=== PATIENT | female | born 1995 | race Caucasian/White ===

== ENCOUNTER 2018-08-03 11:03 | Inpatient (IN) | payer OTHER ==
[2018-08-05] MEDS: LACTATED RINGERS 1,000 ML IV SCH ×3 (02:00→10:45)
[2018-08-05] MEDS ORDERED: LIDOCAINE 1% INJ 10MG/ML (20 ML MDV) SQ PRN (02:01)
[2018-08-05] MEDS ORDERED: CARBOPROST TROMETHAMINE 250 MCG/ML 1 ML AMP IM PRN (02:01)
[2018-08-05] MEDS ORDERED: TERBUTALINE 1 MG/ML VIAL SQ PRN (02:01)
[2018-08-05] MEDS ORDERED: OXYTOCIN 10 UNIT/ML 1 ML VIAL IM PRN (02:01)
[2018-08-05] MEDS ORDERED: METHYLERGONOVINE 0.2 MG/ML 1 ML AMP IM PRN (02:01)
[2018-08-05 02:12] LABS: Basophils # (A) 0.1 k/uL (0-0.2); Basophils % (A) 1 %; Eosinophils # (A) 0.1 k/uL (0-0.7); Eosinophils % (A) 2 %; HCT 33.5 % (34.0-46.0); Lymphocytes # (A) 2.7 k/uL (1.0-4.8); Lymphocytes % (A) 28 %; MCH 27.4 pg (25.0-35.0); MCHC 32.9 g/dL (31.0-37.0); MCV 83.4 fL (80.0-100.0); Mean Platelet Volume 7.2; Monocytes # (A) 0.5 k/uL (0-1.0); Monocytes % (A) 5 %; Neutrophils # (A) 6.2 k/uL (1.3-7.7); Neutrophils % (A) 64 %; Platelet Count 245 k/uL (150-450); RBC 4.01 m/uL (3.80-5.40); WBC 9.7 k/uL (4.0-11.0)
[2018-08-05] MEDS ORDERED: BUTORPHANOL 1 MG/ML 1 ML VIAL IV PRN (02:21)
[2018-08-05] MEDS: OXYTOCIN 20 UNITS/1000 ML NS 1,000 ML IV SCH ×2 (04:38→17:18)
--- NOTE | 2018-08-05 07:26 | P.HPOB ---
History of Present Illness H&P Date: 08/05/18 Chief Complaint: SROM 22 year old presents at 40 weeks 2 days with spontaneous rupture of membranes at 430am. Her cervix is 3cm dilated, 80%effaced and -2 station. she is cathleen irregularly. heart tones 135-140 with moderate variability and reactive. Review of Systems All systems: negative Constitutional: Denies chills, Denies fever Eyes: denies blurred vision, denies pain Ears, nose, mouth and throat: Denies headache, Denies sore throat Cardiovascular: Denies chest pain, Denies shortness of breath Respiratory: Denies cough Gastrointestinal: Denies abdominal pain, Denies diarrhea, Denies nausea, Denies vomiting Genitourinary: Denies dysuria, Denies hematuria Musculoskeletal: Denies myalgias Integumentary: Denies pruritus, Denies rash Neurological: Denies numbness, Denies weakness Psychiatric: Denies anxiety, Denies depression Endocrine: Denies fatigue, Denies weight change Past Medical History Past Medical History: No Reported History Additional Past Medical History / Comment(s): OB history: This is her first and she had care with me since 25 weeks. O+, abs neg, Rub Imm , RPR Nr, Hep B neg, HIV NR, normal 1hr GTT. EIF on anatomy US-neg maternity 21. History of Any Multi-Drug Resistant Organisms: None Reported Past Surgical History: Tonsillectomy Past Anesthesia/Blood Transfusion Reactions: No Reported Reaction Past Psychological History: No Psychological Hx Reported Smoking Status: Never smoker Past Alcohol Use History: None Reported Past Drug Use History: None Reported - Past Family History Mother Family Medical History: No Reported History Medications and Allergies Home Medications Medication Instructions Recorded Confirmed Type No Known Home Medications 08/05/18 08/05/18 History Pnv,Calcium 72/Iron/Folic Acid 1 each PO DAILY 08/05/18 08/05/18 History [ Plus Tablet] Allergies Allergy/AdvReac Type Severity Reaction Status Date / Time No Known Allergies Allergy Verified 08/05/18 01:46 Exam Osteopathic Statement: *. No significant issues noted on an osteopathic structural exam other than those noted in the History and Physical/Consult. Vital Signs Temp Pulse Resp BP Pulse Ox 08/05/18 02:04 97.4 F L 73 16 119/80 98 Intake and Output 08/04/18 08/05/18 08/05/18 22:59 06:59 14:59 Other: # Voids 1 Weight 81.647 kg Heart: RRR Lungs: CTAB Abdomen: soft, nontender Extremeties: neg juan's Results Result Diagrams: 08/05/18 02:00 Abnormal Lab Results - Last 24 Hours (Table) 08/05/18 Range/Units 02:00 Hgb 11.0 L (11.4-16.0) gm/dL Hct 33.5 L (34.0-46.0) % Assessment and Plan (1) Spontaneous rupture of membranes Current Visit: Yes Status: Acute Code(s): [id number] - SNOMED Code(s): 123135258 Plan: 1. pitocin augmentation 2. anticipate normal vaginal delivery
[2018-08-05] MEDS ORDERED: ROPIVACAINE 100 MG, fentaNYL (PF) 200 MCG in SODIUM CHLORIDE 0.9% 76 ML EPIDURAL ONE (08:20)
[2018-08-05] MEDS ORDERED: diphenhydrAMINE 50 MG CAP PO PRN (14:48)
[2018-08-05] MEDS ORDERED: diphenhydrAMINE 25 MG CAP PO PRN (14:48)
[2018-08-05] MEDS ORDERED: HYDROCORTISONE 2.5% RECTAL CREAM 30 GM TUBE RECTAL PRN (14:48)
[2018-08-05] MEDS ORDERED: SIMETHICONE 80 MG CHEWABLE PO PRN (14:48)
[2018-08-05] MEDS ORDERED: ACETAMINOPHEN TAB 325 MG TAB PO PRN (14:48)
[2018-08-05] MEDS ORDERED: BENZOCAINE/MENTHOL SPRAY 1 GM/SPRAY AEROSOL TOPICAL PRN (14:48)
[2018-08-05] MEDS ORDERED: WITCH HAZEL 1 EACH MED..PAD TOPICAL PRN (14:48)
[2018-08-05] MEDS ORDERED: ZOLPIDEM 5 MG TAB PO PRN (14:48)
[2018-08-05] MEDS ORDERED: diphenhydrAMINE 50 MG/ML 1 ML VIAL IVP PRN ×2 (14:48)
[2018-08-05 16:35] VITALS: RESP 16
--- NOTE | 2018-08-05 17:42 | P.PROBDLV ---
Vaginal Delivery Note - . Vaginal Delivery Note: 22-year-old presented at 40 weeks and 2 days with spontaneous rupture membranes at 00 30. When she presented she was 3 cm dilated, 80% effaced, -2 station. She is cathleen irregularly. heart tones 140-145 with moderate variability and reactive. Pitocin augmentation was started. When she was uncomfortable she did get an epidural. Her cervix was completely dilated at 1311. She pushed, delivered a viable male over intact perineum under epidural anesthesia at 1412. Head delivered OA, anterior shoulder delivered gentle downward guidance followed by posterior shoulder and rest of body. Nose and mouth suctioned, cord clamped and cut, placed on mother's abdomen. Apgars 9, 10, weight 7 lbs. 7 oz. Placenta delivered spontaneously, intact with three-vessel cord at 1415. Vagina, cervix, and perineum were inspected. First-degree right lateral laceration was repaired with 3-0 Vicryl. Estimated blood loss 200 mL. Mother and baby in stable condition.
[2018-08-05] MEDS: IBUPROFEN 600 MG TAB PO PRN (19:43)
[2018-08-05] MEDS: SENNOSIDES-DOCUSATE SODIUM 1 EACH TAB PO SCH (19:44)
[2018-08-06] MEDS: SENNOSIDES-DOCUSATE SODIUM 1 EACH TAB PO SCH (08:16)
[2018-08-06] MEDS: IBUPROFEN 600 MG TAB PO PRN ×2 (08:31→14:59)
--- NOTE | 2018-08-06 11:22 | P.DS ---
Providers Date of admission: 08/05/18 01:30 Expected date of discharge: 08/06/18 Attending physician: Imani Clemente Primary care physician: Stated None - Discharge Diagnosis(es) (1) Spontaneous rupture of membranes Current Visit: Yes Status: Resolved (2) Normal vaginal delivery Current Visit: Yes Status: Acute Hospital Course: Patient presented with spontaneous rupture membranes. She underwent a normal vaginal delivery. She'll be discharged home day #1 in stable condition to follow-up with me in 6 weeks. Plan - Discharge Summary New Discharge Prescriptions: New Ibuprofen [Motrin] 600 mg PO Q6HR PRN #30 tab PRN Reason: Mild Pain Or Fever >= 100.5 No Action Pnv,Calcium 72/Iron/Folic Acid [ Plus Tablet] 1 each PO DAILY Discharge Medication List Pnv,Calcium 72/Iron/Folic Acid [ Plus Tablet] 1 each PO DAILY 08/05/18 [ History] Ibuprofen [Motrin] 600 mg PO Q6HR PRN #30 tab 08/06/18 [Rx] Follow up Appointment(s)/Referral(s): Imani Clemente DO [Doctor of Osteopathic Medicine] - 6 Weeks Discharge Disposition: HOME SELF-CARE
[2018-08-06] MEDS ORDERED: DIPH,PERTUS(ACELL)TETVAC-LF 0.5 ML VIAL IM ONE (14:50)
[2018-08-06 17:01] VITALS: BP 114/76; PULSE 59; TEMP 98.5
== END 2018-08-06 16:33 | disposition home or self-care (01) | DRG 807 ==
LOC: 4FBP 08-05 01:30
PROVIDERS: ADMIT Obstetrics & Gynecology; ATTEND Obstetrics & Gynecology
PROC: 0HQ9XZZ Repair Perineum Skin, External Approach (ICD-10-PCS; principal; 2018-08-05)
PROC: 00HU33Z Insertion of Infusion Device into Spinal Canal, Percutaneous Approach (ICD-10-PCS; principal; 2018-08-05)
PROC: 3E0R3NZ Introduction of Analgesics, Hypnotics, Sedatives into Spinal Canal, Percutaneous Approach (ICD-10-PCS; principal; 2018-08-05)
PROC: 10E0XZZ Delivery of Products of Conception, External Approach (ICD-10-PCS; principal; 2018-08-05)
DX: O70.0 First degree perineal laceration during delivery (principal); Z37.0 Single live birth; Z3A.40 40 weeks gestation of pregnancy
CPT/HCPCS: 85025; 86850; 86900; 86901; 90715

== ENCOUNTER 2019-01-06 19:53 | Emergency (ER) | payer OTHER ==
--- NOTE | 2019-01-06 20:45 | XR ---
PROCEDURE: XR knee 4V RT - 3V DATE AND TIME: 01/06/2019 8:28 PM CLINICAL INDICATION: PHH; Pain TECHNIQUE: Department protocol COMPARISON: None FINDINGS: There is no fracture or malalignment. The soft tissues are unremarkable. IMPRESSION: NO ACUTE PROCESS.
[2019-01-06] MEDS ORDERED: ACETAMINOPHEN TAB 325 MG TAB PO STA (20:47)
--- NOTE | 2019-01-06 21:16 | ED ---
General Adult HPI - General Chief complaint: Extremity Injury, Lower Stated complaint: Knee pain Time Seen by Provider: 01/06/19 20:07 Source: patient, RN notes reviewed, old records reviewed Mode of arrival: wheelchair Limitations: no limitations - History of Present Illness Initial comments: 23-year-old female patient with no pertinent past medical history presents ED with acute right knee injury. Patient force that she was walking at work when her right knee make contact with a protruding manual hernandes at her work. Patient reports that she hit her right knee and fell to the ground. Patient denies any trauma to head or neck. Patient primary complaint is anterior right knee pain. Patient has been ambulatory with pain. Patient denies any other complaints. Systemic: Pt denies fatigue, myalgia, fever/chills, rash. Pt denies weakness, night sweats, weight loss. Neuro: Pt denies headache, visual disturbances, syncope or pre-syncope. HEENT: Pt denies ocular discharge or irritation, otalgia, rhinorrhea, pharyngitis or notable lymphadenopathy. Cardiopulmonary: Pt denies chest pain, SOB, heart palpitations, dyspnea on exertion. Abdominal/GI: Pt denies abdominal pain, n/v/d. : Pt denies dysuria, burning w/ urination, frequency/urgency. Denies new onset urinary or bowel incontinence. MSK: Pt denies myalgia, loss of strength or function in extremities. Neuro: Pt denies new onset weakness, paresthesias. - Related Data Home Medications Medication Instructions Recorded Confirmed No Known Home Medications 01/06/19 01/06/19 Allergies Allergy/AdvReac Type Severity Reaction Status Date / Time No Known Allergies Allergy Verified 08/05/18 01:46 Review of Systems ROS Statement: Those systems with pertinent positive or pertinent negative responses have been documented in the HPI. ROS Other: All systems not noted in ROS Statement are negative. Past Medical History Past Medical History: No Reported History Additional Past Medical History / Comment(s): OB history: This is her first and she had care with me since 25 weeks. O+, abs neg, Rub Imm, RPR Nr, Hep B neg, HIV NR, normal 1hr GTT. EIF on anatomy US-neg maternity 21. History of Any Multi-Drug Resistant Organisms: None Reported Past Surgical History: Tonsillectomy Past Anesthesia/Blood Transfusion Reactions: No Reported Reaction Past Psychological History: No Psychological Hx Reported Smoking Status: Never smoker Past Alcohol Use History: None Reported Past Drug Use History: None Reported - Past Family History Mother Family Medical History: No Reported History General Exam - General Exam Comments Initial Comments: Constitutional: NAD, AOX3, Pt has pleasant affect. HEENT: NC/AT, trachea midline, neck supple, no lymphadenopathy. Posterior pharynx non erythematous, without exudates. External ears appear normal, without discharge. Mucous membranes moist. Eyes PERRLA, EOM intact. There is no scleral icterus. No pallor noted. Cardiopulmonary: RRR, no murmurs, rubs or gallops, no JVD noted. Lungs CTAB in anterior and posterior cordova. No peripheral edema. Abdominal exam: Abdomen soft and non-distended. Abdomen non-tender to palpation in all 4 quadrants. Bowel sounds active in LLQ. No hepatosplenomegaly. No e cchymosis Neuro: CN II-XII grossly intact. No nuchal rigidity. MSK: Small ecchymoses noted on the anterior right patella. Full active range of motion, without pain. Full passive range of motion without pain. Patient able to bear weight with cane. Distal pulses intact and equal. No tenderness to to/fibula, femur, ankle, foot. Mild tenderness to medial aspect of right knee. No posterior calf tenderness bilaterally, homans sign negative bilaterally. Posterior tibialis and radial pulse +2 bilaterally. Sensation intact in upper and lower extremities. Full active ROM in upper and lower extremities, 5/5 stregnth. Limitations: no limitations Course Vital Signs 01/06/19 01/06/19 19:59 21:47 Temperature 97.8 F 97.5 F L Pulse Rate 61 62 Respiratory 20 16 Rate Blood Pressure 117/75 120/77 O2 Sat by Pulse 99 99 Oximetry Medical Decision Making - Medical Decision Making 23-year-old female patient with no pertinent past medical history presents ED with acute right knee injury. Patient force that she was walking at work when her right knee make contact with a protruding manual hernandes at her work. Patient reports that she hit her right knee and fell to the ground. Patient denies any trauma to head or neck. Patient primary complaint is anterior right knee pain. Patient has been ambulatory with pain. Patient denies any other complaints. Patient vital signs stable, afebrile. Physical exam displayed: Small ecchymoses noted on the anterior right patella. Full active range of motion, without pain. Full passive range of motion without pain. Patient able to bear weight with cane. Distal pulses intact and equal. No tenderness to to/fibula, femur, ankle, foot. Mild tenderness to medial aspect of right knee. Plain film of right Display any acute process. Patient placed in knee immobilizer. Patient to follow up with orthopedic consult. Patient is crutches, not bear weight. Patient will return here if condition worsens in any way. Case discussed with Dr. Hernandez. Disposition Clinical Impression: Right knee sprain Disposition: HOME SELF-CARE Condition: Stable Instructions (If sedation given, give patient instructions): Knee Sprain (ED) Additional Instructions: Patient to adhere to previously discussed treatment plan and will take medication(s) as directed. Patient to follow up with PCP in 1-2 days. Patient to return to ED if symptoms do not improve. Please follow-up with orthopedic consult 1-2 days. Please return to ER if condition worsens in any way. Please do not bear weight. Please continue to use knee immobilizer and crutches. Is patient prescribed a controlled substance at d/c from ED?: No Referrals: Fabio Granados MD [Primary Care Provider] - 1-2 days Kendra Cowan PAC [PHYSICIAN WAFFLE MACHINE OPERATOR] - 1-2 days
[2019-01-06 21:49] VITALS: BP 120/77; PULSE 62; RESP 16; TEMP 97.5
== END 2019-01-06 21:49 | disposition home or self-care (01) ==
LOC: EC 19:53
DX: S83.91XA Sprain of unspecified site of right knee, initial encounter (principal); W18.09XA Striking against other object with subsequent fall, initial encounter; Y93.01 Activity, walking, marching and hiking; Y92.69 Other specified industrial and construction area as the place of occurrence of the external cause; Y99.0 Civilian activity done for income or pay
CPT/HCPCS: 99284

== ENCOUNTER 2019-03-20 14:23 | Emergency (ER) | payer BC, OTHER ==
[2019-03-20] MEDS ORDERED: LORazepam 2 MG/ML INJ IV STA (15:02)
[2019-03-20] MEDS ORDERED: SODIUM CHLORIDE 0.9% 1,000 ML IV STA (15:02)
[2019-03-20] MEDS ORDERED: ONDANSETRON 4 MG/2 ML VIAL IVP STA (15:02)
[2019-03-20 15:25] LABS: Basophils # (A) 0.1 k/uL (0-0.2); Basophils % (A) 0 %; Eosinophils # (A) 0.3 k/uL (0-0.7); Eosinophils % (A) 2 %; HCT 46.7 % (34.0-46.0); HGB 15.3 gm/dL (11.4-16.0); Lymphocytes # (A) 0.7 k/uL (1.0-4.8); Lymphocytes % (A) 4 %; MCH 26.2 pg (25.0-35.0); MCHC 32.8 g/dL (31.0-37.0); MCV 79.9 fL (80.0-100.0); Mean Platelet Volume 7.4; Monocytes # (A) 0.5 k/uL (0-1.0); Monocytes % (A) 3 %; Neutrophils # (A) 15.5 k/uL (1.3-7.7); Neutrophils % (A) 91 %; Platelet Count 276 k/uL (150-450); RBC 5.85 m/uL (3.80-5.40); RDW 15.5 % (11.5-15.5)
[2019-03-20 15:35] LABS: ALT 18 U/L (9-52); AST 21 U/L (14-36); African American GFR (CKD) >90 (>60 ml/min/1.73 sqM); Alkaline Phosphatase 84 U/L (38-126); Amylase 84 U/L (30-110); Anion Gap 15 mmol/L; Blood Urea Nitrogen 15 mg/dL (7-17); Calcium 10.3 mg/dL (8.4-10.2); Carbon Dioxide 16 mmol/L (22-30); Chloride 109 mmol/L (98-107); Glucose 158 mg/dL (74-99); Lipase 145 U/L (23-300); Potassium 3.8 mmol/L (3.5-5.1); Sodium 140 mmol/L (137-145); Total Bilirubin 1.1 mg/dL (0.2-1.3); Total Protein 8.1 g/dL (6.3-8.2)
--- NOTE | 2019-03-20 15:57 | ED ---
Nausea/Vomiting/Diarrhea HPI - General Chief complaint: Nausea/Vomiting/Diarrhea Stated complaint: vomiting Time Seen by Provider: 03/20/19 14:41 Source: patient, family Mode of arrival: wheelchair Limitations: no limitations - History of Present Illness Initial comments: 23-year-old female patient presents to the emergency department today for evaluation of vomiting, diarrhea, and anxiety. Patient states on 10 AM she started vomiting and having episodes of diarrhea. States she's had numerous episodes of both. States that she occasionally has abdominal cramping just prior to a diarrhea episode. She denies hematochezia, melena, or hematemesis. States she feels chilled but has had no fevers. Denies any recent travel or antibiotic use. States that multiple family members in her household have been sick with similar symptoms over the last several days. Patient denies any chance of . Denies any hematuria, dysuria, urinary frequency, urinary urgency. She denies any back pain. Patient denies any recent rash, shortness breath, chest pain, numbness, tingling, dizziness, weakness, headache, visual changes, or any other complaints. - Related Data Previous Rx's Medication Instructions Recorded Ondansetron [Zofran ODT] 4 mg PO Q8HR PRN #10 tab 03/20/19 Allergies Allergy/AdvReac Type Severity Reaction Status Date / Time No Known Allergies Allergy Verified 03/20/19 14:43 Review of Systems ROS Statement: Those systems with pertinent positive or pertinent negative responses have been documented in the HPI. ROS Other: All systems not noted in ROS Statement are negative. Past Medical History Past Medical History: No Reported History Additional Past Medical History / Comment(s): OB history: This is her first and she had care with ma since 25 weeks. O+, abs neg, Rub Imm, RPR Nr, Hep B neg, HIV NR, normal 1hr GTT. EIF on anatomy US-neg maternity 21. History of Any Multi-Drug Resistant Organisms: None Reported Past Surgical History: Tonsillectomy Past Anesthesia/Blood Transfusion Reactions: No Reported Reaction Past Psychological History: No Psychological Hx Reported Smoking Status: Never smoker Past Alcohol Use History: None Reported Past Drug Use History: None Reported - Past Family History Mother Family Medical History: No Reported History General Exam Limitations: no limitations General appearance: alert, in no apparent distress, anxious, other (This a well- developed, well-nourished adult female patient in no acute distress. Vital signs upon presentation are temperature 97.6F, pulse 82, respirations 18, blood pressure 118/68, pulse ox 98% on room air.) Eye exam: Present: normal appearance, PERRL, EOMI. Absent: scleral icterus, conjunctival injection, periorbital swelling ENT exam: Present: normal exam, normal oropharynx, mucous membranes moist Respiratory exam: Present: normal lung sounds bilaterally. Absent: respiratory distress, wheezes, rales, rhonchi, stridor Cardiovascular Exam: Present: regular rate, normal rhythm, normal heart sounds. Absent: systolic murmur, diastolic murmur, rubs, gallop, clicks GI/Abdominal exam: Present: soft, normal bowel sounds. Absent: distended, tenderness, guarding, rebound, rigid Neurological exam: Present: alert, oriented X3, CN II-XII intact Psychiatric exam: Present: anxious Skin exam: Present: warm, dry, intact, normal color. Absent: rash Course Vital Signs 03/20/19 03/20/19 03/20/19 14:32 14:54 16:31 Temperature 97.6 F 97.9 F Pulse Rate 82 69 62 Respiratory 18 16 16 Rate Blood Pressure 118/68 119/73 101/76 O2 Sat by Pulse 98 100 96 Oximetry 03/20/19 18:35 Temperature 98.0 F Pulse Rate 76 Respiratory 18 Rate Blood Pressure 112/64 O2 Sat by Pulse 100 Oximetry Medical Decision Making - Medical Decision Making 23-year-old female patient presented to the emergency department today for evaluation of vomiting and diarrhea that started around 10 AM. Patient's family members recently ill with similar symptoms. Physical examination is unremarkable. Abdomen soft and nontender. Labs reviewed and did reveal white blood cell, 17, likely reactive from vomiting. Remainder labs are unremarkable. Patient was given IV fluids and IV medication here in the emergency department. Upon reevaluation patient does report complete improvement of symptoms. States she feels much better. She is able to tolerate oral intake. Upon reevaluation, abdomen remained soft and nontender. We did discuss Tried This Is a Cause for Her Symptoms. She'll Be Given a Prescription for Zofran. She Is Instructed to Start with Clear Liquid Diet and Advance As Tolerated. She Is Instructed to Follow-Up with Her Primary Care Physician for Recheck in 1-2 Days. Return Parameters Were Discussed in Detail. She Verbalizes Understanding and Agrees with This Plan. - Lab Data Result diagrams: 03/20/19 15:15 03/20/19 15:15 Lab Results 03/20/19 03/20/19 03/20/19 Range/Units 15:15 15:15 16:30 WBC 17.0 H (3.8-10.6) k/uL RBC 5.85 H (3.80-5.40) m/uL Hgb 15.3 (11.4-16.0) gm/dL Hct 46.7 H (34.0-46.0) % MCV 79.9 L (80.0-100.0) fL MCH 26.2 (25.0-35.0) pg MCHC 32.8 (31.0-37.0) g/dL RDW 15.5 (11.5-15.5) % Plt Count 276 (150-450) k/uL Neutrophils % 91 % Lymphocytes % 4 % Monocytes % 3 % Eosinophils % 2 % Basophils % 0 % Neutrophils # 15.5 H (1.3-7.7) k/uL Lymphocytes # 0.7 L (1.0-4.8) k/uL Monocytes # 0.5 (0-1.0) k/uL Eosinophils # 0.3 (0-0.7) k/uL Basophils # 0.1 (0-0.2) k/uL Sodium 140 (137-145) mmol/L Potassium 3.8 (3.5-5.1) mmol/L Chloride 109 H (98-107) mmol/L Carbon Dioxide 16 L (22-30) mmol/L Anion Gap 15 mmol/L BUN 15 (7-17) mg/dL Creatinine 0.70 (0.52-1.04) mg/dL Est GFR (CKD-EPI)AfAm >90 (>60 ml/min/1.73 sqM) Est GFR (CKD-EPI)NonAf >90 (>60 ml/min/1.73 sqM) Glucose 158 H (74-99) mg/dL Calcium 10.3 H (8.4-10.2) mg/dL Total Bilirubin 1.1 (0.2-1.3) mg/dL AST 21 (14-36) U/L ALT 18 (9-52) U/L Alkaline Phosphatase 84 (38-126) U/L Total Protein 8.1 (6.3-8.2) g/dL Albumin 5.0 (3.5-5.0) g/dL Amylase 84 (30-110) U/L Lipase 145 (23-300) U/L Urine Color Urine Appearance (Clear) Urine pH (5.0-8.0) Ur Specific [place] (1.001-1.035) Urine Protein (Negative) Urine Glucose (UA) (Negative) Urine Ketones (Negative) Urine Blood (Negative) Urine Nitrite (Negative) Urine Bilirubin (Negative) Urine Urobilinogen (<2.0) mg/dL Ur Leukocyte Esterase (Negative) Urine RBC (0-5) /hpf Urine WBC (0-5) /hpf Ur Squamous Epith Cells (0-4) /hpf Urine Mucus (None) /hpf Urine HCG, Qual Not Detected (Not Detectd) 03/20/19 Range/Units 16:30 WBC (3.8-10.6) k/uL RBC (3.80-5.40) m/uL Hgb (11.4-16.0) gm/dL Hct (34.0-46.0) % MCV (80.0-100.0) fL MCH (25.0-35.0) pg MCHC (31.0-37.0) g/dL RDW (11.5-15.5) % Plt Count (150-450) k/uL Neutrophils % % Lymphocytes % % Monocytes % % Eosinophils % % Basophils % % Neutrophils # (1.3-7.7) k/uL Lymphocytes # (1.0-4.8) k/uL Monocytes # (0-1.0) k/uL Eosinophils # (0-0.7) k/uL Basophils # (0-0.2) k/uL Sodium (137-145) mmol/L Potassium (3.5-5.1) mmol/L Chloride (98-107) mmol/L Carbon Dioxide (22-30) mmol/L Anion Gap mmol/L BUN (7-17) mg/dL Creatinine (0.52-1.04) mg/dL Est GFR (CKD-EPI)AfAm (>60 ml/min/1.73 sqM) Est GFR (CKD-EPI)NonAf (>60 ml/min/1.73 sqM) Glucose (74-99) mg/dL Calcium (8.4-10.2) mg/dL Total Bilirubin (0.2-1.3) mg/dL AST (14-36) U/L ALT (9-52) U/L Alkaline Phosphatase (38-126) U/L Total Protein (6.3-8.2) g/dL Albumin (3.5-5.0) g/dL Amylase (30-110) U/L Lipase (23-300) U/L Urine Color Yellow Urine Appearance Clear (Clear) Urine pH 5.5 (5.0-8.0) Ur Specific [place] 1.023 (1.001-1.035) Urine Protein Trace H (Negative) Urine Glucose (UA) Negative (Negative) Urine Ketones 4+ H (Negative) Urine Blood Negative (Negative) Urine Nitrite Negative (Negative) Urine Bilirubin Negative (Negative) Urine Urobilinogen <2.0 (<2.0) mg/dL Ur Leukocyte Esterase Moderate H (Negative) Urine RBC 1 (0-5) /hpf Urine WBC 4 (0-5) /hpf Ur Squamous Epith Cells 3 (0-4) /hpf Urine Mucus Few H (None) /hpf Urine HCG, Qual (Not Detectd) Disposition Clinical Impression: Gastroenteritis Disposition: HOME SELF-CARE Condition: Good Instructions (If sedation given, give patient instructions): Gastroenteritis (ED) Additional Instructions: Start with clear liquid diet and advance as tolerated. Take medications as directed. Follow-up with the primary care physician for recheck in 1-2 days. Return to the emergency department immediately for any new, worsening, or concerning symptoms. Prescriptions: Ondansetron [Zofran ODT] 4 mg PO Q8HR PRN #10 tab PRN Reason: Nausea Is patient prescribed a controlled substance at d/c from ED?: No Referrals: Fabio Granados MD [Primary Care Provider] - 1-2 days Time of Disposition: 17:46
[2019-03-20] MEDS ORDERED: KETOROLAC 30 MG/ML 1 ML VIAL IVP STA (16:38)
[2019-03-20 16:42] LABS: Appearance,Urine Clear (Clear); Bilirubin,Urine Negative (Negative); Blood,Urine Negative (Negative); Color,Urine Yellow; Glucose,Urine (UA) Negative (Negative); Ketones,Urine 4+ (Negative); Leukocyte Esterase,Urine Moderate (Negative); Mucus,Urine Few /hpf; Nitrite,Urine Negative (Negative); PH, Urine 5.5 (5.0-8.0); Protein,Urine Trace (Negative); RBC,Urine 1 /hpf (0-5); Specific Gravity,Urine 1.023 (1.001-1.035); Squamous Epithelial Cell,Urine 3 /hpf (0-4); Urobilinogen,Urine <2.0 mg/dL (<2.0); WBC,Urine 4 /hpf (0-5)
[2019-03-20] MEDS ORDERED: SODIUM CHLORIDE 0.9% 1,000 ML IV ONE (17:26)
[2019-03-20] MEDS ORDERED: ONDANSETRON 4 MG ODT STARTER PACK 2 TAB BTL PO STA (17:45)
[2019-03-20 18:37] VITALS: BP 112/64; PULSE 76; RESP 18; TEMP 98
== END 2019-03-20 18:37 | disposition home or self-care (01) ==
LOC: EC 14:23
DX: K52.9 Noninfective gastroenteritis and colitis, unspecified (principal); F41.9 Anxiety disorder, unspecified
CPT/HCPCS: 36415; 80053; 82150; 83690; 85025; 81001; 81025; 99284; 96374; 96375 ×2; 96361 ×3; J2060; J2405; J1885; S0119

== ENCOUNTER → 2020-06-19 | Outpatient (CLI) | payer BC, OTHER ==
--- NOTE | 2020-06-19 12:55 | US ---
EXAMINATION TYPE: US thyroid st tissue head/neck DATE OF EXAM: 06/19/2020 COMPARISON: US CLINICAL HISTORY: R59.9 Enlarged lymph nodes. Patient feels two palpable, one is on the lower right jaw, and the second one is just below the jaw o n the left neck. The right jaw was scanned directly over palpable as pointed out by patient. There is a hypoechoic are a measuring 0.5 x 0.3 x 0.8 cm with internal vascularity. The left neck area palpable was scanned directly over palpable as pointed out by patient. There is a 2.3 x 0.6 cm hypoechoic area with internal vascularity. COMPARISON: There has been lymphadenopathy present previously in 2017, these appear smaller than the comparison. IMPRESSION: 1. Probable lymphadenopathy within the neck the levels of the palpable abnormalities. Monitoring can be performed. If these continue to change or additional suspected adenopathy develops, CT neck soft t issues be performed as needed.
== END | disposition home or self-care (01) ==
LOC: RADUSWWP 12:18
PROVIDERS: ATTEND Internal Medicine
DX: R59.9 Enlarged lymph nodes, unspecified (principal)
CPT/HCPCS: 76536

== ENCOUNTER → 2020-07-10 | Outpatient (CLI) | payer BC, OTHER ==
--- NOTE | 2020-07-10 11:01 | CT ---
EXAMINATION TYPE: CT soft tissue neck w con DATE OF EXAM: 07/10/2020 9:35 AM COMPARISON: Ultrasound 06/19/2020 HISTORY: Cervical lymphadenopathy CT DLP: 266.20 mGycm Automated exposure control for dose reduction was used. CONTRAST: CT scan of the neck is performed following with IV Contrast, patient injected with 100 ml mL of Isovu e 300. Axial images are obtained, coronal and sagittal reformatted images are reviewed. FINDINGS: Just caudal to the submandibular gland on the left there is a lymph node with short axis me asurement of approximately 12 to 13 mm corresponding to palpable abnormality and the overlying marker . There are some questionable asymmetric soft tissue associated with the palatine tonsil on the left which could be technical. Airway: No gross abnormality seen.0 there is mucosal thickening in the right maxillary sinus. Parotid/submandibular glands: No gross abnormality seen. Carotid/Vascular Structures: Patent Osseous Structures: Unremarkable Other: No additional abnormality IMPRESSION: Enlarged submandibular lymph node corresponds to the palpable abnormality and abnormalit y seen on ultrasound. Question some asymmetric increased soft tissue associated with the palatine ton zachary on the left.
== END | disposition home or self-care (01) ==
LOC: RADCTMAIN 08:44
PROVIDERS: ATTEND Otolaryngology
DX: R59.0 Localized enlarged lymph nodes (principal)
CPT/HCPCS: 70491; Q9967

== ENCOUNTER 2024-07-11 14:21 | Emergency (ER) | payer BC, OTHER ==
--- NOTE | 2024-07-11 15:16 | ED ---
Female Urogenital HPI - General Source: patient, RN notes reviewed Mode of arrival: ambulatory Limitations: no limitations - History of Present Illness MD Complaint: vaginal bleeding, pelvic pain <Jodi Griffin - Last Filed: 07/11/24 15:14> <Rosa Elena Sadler - Last Filed: 07/11/24 20:28> - General Chief complaint: Vaginal Bleeding Stated complaint: vag bleeding,abd pain Time Seen by Provider: 07/11/24 15:10 - History of Present Illness Initial comments: Quick Note: This is a 28-year-old female who presents to the emergency department for abdominal pain and vaginal bleeding. Patient had an IUD placed in 2020. States that she tends to get regular periods each month that are fairly light and lasting about 3 days. She states that she has been dealing with bleeding for the last 2 to 3 weeks, but getting much worse over the last 3 days. Reports increasing pelvic cramping as well. She has never had a problem like this with the IUD before. (Jodi Griffin) This is a 28-year-old female with a significant past medical history presents emergency department chief complaint of lower abdominal pelvic cramping and vaginal bleeding and heavy over the past 3 days. Per ED of the past 3 days and states that she has been experiencing intermittent bleeding and spotting over the past week causing concern. IUD placed in 2020. Denies urinary complaints, nausea, vomiting, fevers or chills. (Rosa Elena Sadler) - Related Data Previous Rx's Medication Instructions Recorded Ondansetron [Zofran ODT] 4 mg PO Q8HR PRN #10 tab 03/20/19 Allergies Allergy/AdvReac Type Severity Reaction Status Date / Time No Known Allergies Allergy Verified 07/11/24 14:28 Review of Systems ROS Other: All systems not noted in ROS Statement are negative. <Jodi Griffin - Last Filed: 07/11/24 15:14> ROS Other: All systems not noted in ROS Statement are negative. <Rosa Elena Sadler - Last Filed: 07/11/24 20:28> ROS Statement: Those systems with pertinent positive or pertinent negative responses have been documented in the HPI. Past Medical History Past Medical History: No Reported History Additional Past Medical History / Comment(s): OB history: This is her first and she had care with me since 25 weeks. O+, abs neg, Rub Imm, RPR Nr, Hep B neg, HIV NR, normal 1hr GTT. EIF on anatomy US-neg maternity 21. History of Any Multi-Drug Resistant Organisms: None Reported Past Surgical History: Tonsillectomy Past Anesthesia/Blood Transfusion Reactions: No Reported Reaction Past Psychological History: No Psychological Hx Reported Smoking Status: Never smoker Past Alcohol Use History: None Reported Past Drug Use History: None Reported - Past Family History Mother Family Medical History: No Reported History <Jodi Griffin - Last Filed: 07/11/24 15:14> General Exam Limitations: no limitations <Jodi Griffin - Last Filed: 07/11/24 15:14> General appearance: alert, in no apparent distress ENT exam: Present: normal exam, mucous membranes moist Neck exam: Present: normal inspection. Absent: tenderness, meningismus, lymphadenopathy Respiratory exam: Present: normal lung sounds bilaterally. Absent: respiratory distress, wheezes, rales, rhonchi, stridor Cardiovascular Exam: Present: regular rate, normal rhythm, normal heart sounds. Absent: systolic murmur, diastolic murmur, rubs, gallop, clicks GI/Abdominal exam: Present: soft, tenderness (suprapubic), normal bowel sounds. Absent: distended, guarding, rebound, rigid Extremities exam: Present: normal inspection, full ROM, normal capillary refill. Absent: tenderness, pedal edema, joint swelling, calf tenderness Back exam: Present: normal inspection Skin exam: Present: warm, dry, intact, normal color. Absent: rash <Rosa Elena Sadler - Last Filed: 07/11/24 20:28> - General Exam Comments Initial Comments: Visual Physical Exam Vital signs reviewed General: Well-appearing, nontoxic, no acute distress. Head: Normocephalic, atraumatic Eyes: PERRLA, EOMI ENT: Airway patent Chest: Nonlabored breathing Skin: No visual rash, normal skin tone Neuro: Alert and oriented 3 Musculoskeletal: No gross abnormalities (Jodi Griffin) Course Vital Signs 07/11/24 07/11/24 07/11/24 14:26 16:45 18:00 Temperature 98.6 F 98.4 F Pulse Rate 73 60 55 L Respiratory 18 17 17 Rate Blood Pressure 110/73 107/73 111/64 O2 Sat by Pulse 100 99 100 Oximetry Medical Decision Making <Jodi Griffin - Last Filed: 07/11/24 15:14> - Lab Data Result diagrams: 07/11/24 16:29 07/11/24 16:29 <Rosa Elena Sadler - Last Filed: 07/11/24 20:28> - Medical Decision Making I performed the QuickNote portion of this chart. Signed Jodi Griffin PA-C. (Jodi Griffin) Was pt. sent in by a medical professional or institution (QUINTIN Tellez, HEAD CONTROL CLERK, urgent care, hospital, or half-way...) When possible be specific @ -No Did you speak to anyone other than the patient for history (EMS, parent, family, police, friend...)? What history was obtained from this source @ -No Did you review nursing and triage notes (agree or disagree)? Why? @ -I reviewed and agree with nursing and triage notes Were old charts reviewed (outside hosp., previous admission, EMS record, old EKG, old radiological studies, urgent care reports/EKG's, half-way records)? Report findings @ -No old charts were reviewed Differential Diagnosis (chest pain, altered mental status, abdominal pain women, abdominal pain men, vaginal bleeding, weakness, fever, dyspnea, syncope, headache, dizziness, GI bleed, back pain, seizure, CVA, palpatations, mental health, musculoskeletal)? @ -Differential Vaginal Bleeding: Spontaneous , threatened , molar , ectopic , bloody show, incompetent cervix, abruptioplacenta, placenta previa, uterine rupture, dysfunctional uterine bleeding, hemorrhage, uterine fibroids, this is not meant to be an all-inclusive list. EKG interpreted by me (3pts min.). @ -none X-rays interpreted by me (1pt min.). @ -None done CT interpreted by me (1pt min.). @ -None done U/S interpreted by me (1pt. min.). @ -Transvaginal ultrasound is unremarkable What testing was considered but not performed or refused? (CT, X-rays, U/S, labs)? Why? @ -None What meds were considered but not given or refused? Why? @ -None Did you discuss the management of the patient with other professionals (professionals i.e. , PA, HEAD CONTROL CLERK, lab, RT, psych nurse, social studies department chair, electric motor rebuilder, teacher, rating officer, field case manager)? Give summary @ -No Was smoking cessation discussed for >3mins.? @ -No Was critical care preformed (if so, how long)? @ -No Were there social determinants of health that impacted care today? How? (Homelessness, low income, unemployed, alcoholism, drug addiction, transportation, low edu. Level, literacy, decrease access to med. care, nursing home, rehab)? @ -No Was there de-escalation of care discussed even if they declined (Discuss DNR or withdrawal of care, Hospice)? DNR status @ -No What co-morbidities impacted this encounter? (DM, HTN, Smoking, COPD, CAD, Cancer, CVA, ARF, Chemo, Hep., AIDS, mental health diagnosis, sleep apnea, morbid obesity)? @ -None Was patient admitted / discharged? Hospital course, mention meds given and route, prescriptions, significant lab abnormalities, going to OR and other pertinent info. @ -Discharged. 28-year-old female for screening. Patient was evaluated in the emergency department waiting room as a quick note where a transvaginal ultrasound was ordered addition to laboratory studies and urinalysis. On my evaluation the patient she is resting comfortably no signs acute distress. She is quite tearful on questioning states that she is scared that there may be something more acute going on that she has been experiencing worsening vaginal bleeding over the past few weeks. Patient noted to have mild suprapubic tenderness to palpation. Vitals are stable. She was offered Tylenol and or Motrin however she has declined at this time. Workup has been negative including CBC, CMP, urinalysis, hCG, ultrasound. Patient was provided with information came from visit and instructed to follow-up with informatics developer for further evaluation. She is stable for discharge at this time. Discussed with Dr. Morgan Undiagnosed new problem with uncertain prognosis? @ -No Drug Therapy requiring intensive monitoring for toxicity (Heparin, Nitro, Insulin, Cardizem)? @ -No Were any procedures done? @ -No Diagnosis/symptom? @ -Menorrhagia Acute, or Chronic, or Acute on Chronic? @ -acute Uncomplicated (without systemic symptoms) or Complicated (systemic symptoms)? @ -uncomplicated Side effects of treatment? @ -No Exacerbation, Progression, or Severe Exacerbation? @ -No Poses a threat to life or bodily function? How? (Chest pain, [place], [place], pneumonia, PE, COPD, DKA, ARF, appy, cholecystitis, CVA, Diverticulitis, Homicidal, Suicidal, threat to staff... and all critical care pts) @ -No (Rosa Elena Sadler) - Lab Data Lab Results 07/11/24 07/11/24 07/11/24 Range/Units 16:29 16:29 16:29 WBC 7.5 (3.8-10.6) k/uL RBC 4.84 (3.80-5.40) m/uL Hgb 14.1 (11.4-16.0) gm/dL Hct 43.1 (34.0-46.0) % MCV 88.9 (80.0-100.0) fL MCH 29.0 (25.0-35.0) pg MCHC 32.7 (31.0-37.0) g/dL RDW 12.5 (11.5-15.5) % Plt Count 219 (150-450) k/uL MPV 7.1 Neutrophils % 55 % Lymphocytes % 34 % Monocytes % 6 % Eosinophils % 3 % Basophils % 1 % Neutrophils # 4.1 (1.3-7.7) k/uL Lymphocytes # 2.5 (1.0-4.8) k/uL Monocytes # 0.4 (0-1.0) k/uL Eosinophils # 0.2 (0-0.7) k/uL Basophils # 0.1 (0-0.2) k/uL Sodium (137-145) mmol/L Potassium (3.5-5.1) mmol/L Chloride (98-107) mmol/L Carbon Dioxide (22-30) mmol/L Anion Gap mmol/L BUN (7-17) mg/dL Creatinine (0.52-1.04) mg/dL Est GFR (CKD-EPI)AfAm (>60 ml/min/1.73 sqM) Est GFR (CKD-EPI)NonAf (>60 ml/min/1.73 sqM) Glucose (74-99) mg/dL Plasma Lactic Acid Jeremiah (0.7-2.0) mmol/L Calcium (8.4-10.2) mg/dL Total Bilirubin (0.2-1.3) mg/dL AST (14-36) U/L ALT (4-34) U/L Alkaline Phosphatase (38-126) U/L Total Protein (6.3-8.2) g/dL Albumin (3.5-5.0) g/dL Urine Color Colorless Urine Appearance Clear (Clear) Urine pH 6.5 (5.0-8.0) Ur Specific [place] 1.004 (1.001-1.035) Urine Protein Negative (Negative) Urine Glucose (UA) Negative (Negative) Urine Ketones Negative (Negative) Urine Blood Moderate H (Negative) Urine Nitrite Negative (Negative) Urine Bilirubin Negative (Negative) Urine Urobilinogen <2.0 (<2.0) mg/dL Ur Leukocyte Esterase Trace H (Negative) Urine WBC <1 (0-5) /hpf Ur Squamous Epith Cells 1 (0-4) /hpf Urine Bacteria Rare H (None) /hpf Urine HCG, Qual Not Detected (Not Detectd) 07/11/24 07/11/24 Range/Units 16:29 16:29 WBC (3.8-10.6) k/uL RBC (3.80-5.40) m/uL Hgb (11.4-16.0) gm/dL Hct (34.0-46.0) % MCV (80.0-100.0) fL MCH (25.0-35.0) pg MCHC (31.0-37.0) g/dL RDW (11.5-15.5) % Plt Count (150-450) k/uL MPV Neutrophils % % Lymphocytes % % Monocytes % % Eosinophils % % Basophils % % Neutrophils # (1.3-7.7) k/uL Lymphocytes # (1.0-4.8) k/uL Monocytes # (0-1.0) k/uL Eosinophils # (0-0.7) k/uL Basophils # (0-0.2) k/uL Sodium 139 (137-145) mmol/L Potassium 4.4 (3.5-5.1) mmol/L Chloride 105 (98-107) mmol/L Carbon Dioxide 27 (22-30) mmol/L Anion Gap 7 mmol/L BUN 12 (7-17) mg/dL Creatinine 0.76 (0.52-1.04) mg/dL Est GFR (CKD-EPI)AfAm >90 (>60 ml/min/1.73 sqM) Est GFR (CKD-EPI)NonAf >90 (>60 ml/min/1.73 sqM) Glucose 84 (74-99) mg/dL Plasma Lactic Acid Jeremiah 0.8 (0.7-2.0) mmol/L Calcium 9.9 (8.4-10.2) mg/dL Total Bilirubin 0.7 (0.2-1.3) mg/dL AST 25 (14-36) U/L ALT 13 (4-34) U/L Alkaline Phosphatase 42 (38-126) U/L Total Protein 7.8 (6.3-8.2) g/dL Albumin 4.7 (3.5-5.0) g/dL Urine Color Urine Appearance (Clear) Urine pH (5.0-8.0) Ur Specific [place] (1.001-1.035) Urine Protein (Negative) Urine Glucose (UA) (Negative) Urine Ketones (Negative) Urine Blood (Negative) Urine Nitrite (Negative) Urine Bilirubin (Negative) Urine Urobilinogen (<2.0) mg/dL Ur Leukocyte Esterase (Negative) Urine WBC (0-5) /hpf Ur Squamous Epith Cells (0-4) /hpf Urine Bacteria (None) /hpf Urine HCG, Qual (Not Detectd) Disposition <Jodi Griffin - Last Filed: 07/11/24 15:14> Is patient prescribed a controlled substance at d/c from ED?: No Time of Disposition: 18:09 <Rosa Elena Sadler - Last Filed: 07/11/24 20:28> Clinical Impression: Menorrhagia Disposition: HOME SELF-CARE Condition: Good Instructions (If sedation given, give patient instructions): Menorrhagia (ED) Additional Instructions: Please return to the Emergency Department if symptoms worsen or any other concerns. Referrals: Nonstaff,Physician [Primary Care Provider] - 1-2 days
--- NOTE | 2024-07-11 16:22 | US ---
EXAMINATION TYPE: US transvaginal DATE OF EXAM: 07/11/2024 COMPARISON: NONE CLINICAL INDICATION: Female, 28 years old with history of Pelvic pain and bleeding; 3 days of bleedin g, pelvic pain, IUD for 3 years, TECHNIQUE: TV. Transvaginal sonographic images FINDINGS: Date of LMP: 2 weeks ago EXAM MEASUREMENTS: Uterus: 7.9 x 4.0 x 4.7 cm Endometrial Stripe: 0.7 cm. Right Ovary: 2.9 x 2.4 x 2.2 cm Left Ovary: 2.4 x 1.7 x 2.0 cm 1. Uterus: Anteverted wnl 2. Endometrium: wnl IUD within the endometrial canal. 3. Right Ovary: wnl 4. Left Ovary: wnl 5. Bilateral Adnexa: wnl 6. Posterior cul-de-sac: wnl IMPRESSION: Unremarkable pelvic ultrasound [facility] Eulalio Hinds, Workstation: [facility], 07/11/2024 4:20 PM
[2024-07-11 16:48] VITALS: RESP 17; TEMP 98.4
[2024-07-11 16:55] LABS: Basophils # (A) 0.1 k/uL (0-0.2); Basophils % (A) 1 %; Eosinophils # (A) 0.2 k/uL (0-0.7); Eosinophils % (A) 3 %; HCT 43.1 % (34.0-46.0); HGB 14.1 gm/dL (11.4-16.0); Lymphocytes # (A) 2.5 k/uL (1.0-4.8); Lymphocytes % (A) 34 %; MCHC 32.7 g/dL (31.0-37.0); MCV 88.9 fL (80.0-100.0); Mean Platelet Volume 7.1; Monocytes # (A) 0.4 k/uL (0-1.0); Monocytes % (A) 6 %; Neutrophils # (A) 4.1 k/uL (1.3-7.7); Neutrophils % (A) 55 %; Platelet Count 219 k/uL (150-450); RBC 4.84 m/uL (3.80-5.40); RDW 12.5 % (11.5-15.5); WBC 7.5 k/uL (3.8-10.6)
[2024-07-11 17:06] LABS: ALT 13 U/L (4-34); AST 25 U/L (14-36); African American GFR (CKD) >90 (>60 ml/min/1.73 sqM); Albumin 4.7 g/dL (3.5-5.0); Alkaline Phosphatase 42 U/L (38-126); Anion Gap 7 mmol/L; Blood Urea Nitrogen 12 mg/dL (7-17); Calcium 9.9 mg/dL (8.4-10.2); Carbon Dioxide 27 mmol/L (22-30); Chloride 105 mmol/L (98-107); Glucose 84 mg/dL (74-99); Non-African American GFR(CKD) >90 (>60 ml/min/1.73 sqM); Potassium 4.4 mmol/L (3.5-5.1); Sodium 139 mmol/L (137-145); Total Bilirubin 0.7 mg/dL (0.2-1.3); Total Protein 7.8 g/dL (6.3-8.2)
[2024-07-11 17:48] LABS: Appearance,Urine Clear (Clear); Bacteria,Urine Rare /hpf; Bilirubin,Urine Negative (Negative); Blood,Urine Moderate (Negative); Color,Urine Colorless; Glucose,Urine (UA) Negative (Negative); Ketones,Urine Negative (Negative); Leukocyte Esterase,Urine Trace (Negative); Nitrite,Urine Negative (Negative); PH, Urine 6.5 (5.0-8.0); Protein,Urine Negative (Negative); Specific Gravity,Urine 1.004 (1.001-1.035); Squamous Epithelial Cell,Urine 1 /hpf (0-4); Urobilinogen,Urine <2.0 mg/dL (<2.0); WBC,Urine <1 /hpf (0-5)
[2024-07-11 18:30] VITALS: BP 111/64; PULSE 55
== END 2024-07-11 18:37 | disposition home or self-care (01) ==
LOC: EC 14:21
CPT/HCPCS: 36415; 76830; 80053; 81001; 81025; 83605; 85025; 99284